=== PATIENT | male | born 1945 | race Caucasian/White ===

== ENCOUNTER 2024-03-13 10:46 | Outpatient (CLI) | payer MEDICARE, MEDICAID | END 2024-03-13 23:59 | disposition home or self-care (01) | LOC: MRI 10:46 | PROVIDERS: ATTEND Physician Assistant Surgical | DX: M19.011 Primary osteoarthritis, right shoulder (principal); M25.411 Effusion, right shoulder; M75.101 Unspecified rotator cuff tear or rupture of right shoulder, not specified as traumatic; M25.511 Pain in right shoulder | CPT/HCPCS: 73221 ==

== ENCOUNTER 2024-09-11 08:14 | Emergency (ER) | payer MEDICARE, MEDICAID ==
[~2024-09-11] VITALS: Ht 170.2 cm; Wt 123.2 kg
[2024-09-11 08:28] VITALS: BP 132/78; PULSE 80; O2SAT 96
[2024-09-11 10:33] VITALS: RESP 16
[2024-09-11] MEDS: ondansetron 4mg rapidly disintigrating tab PO ONE (10:33)
[2024-09-11] MEDS: HYDROcodone/acetaminophen 5mg/325mg tablet PO ONE (10:33)
[2024-09-11] MEDS ORDERED: HYDR-3972 PO (10:36)
[2024-09-11] MEDS ORDERED: CYCL-1 PO (10:36)
[2024-09-11] MEDS ORDERED: LIDO700A32 TOP (10:36)
[2024-09-11] MEDS ORDERED: ONDA-243 PO (10:36)
[2024-09-11 10:52] VITALS: TEMP 98
== END 2024-09-11 11:02 | disposition home or self-care (01) ==
LOC: ER 08:15
DX: M54.50 Low back pain, unspecified (principal); G89.29 Other chronic pain
CPT/HCPCS: 72100; 99283